=== PATIENT | male | born 1970 | race Caucasian/White ===

== ENCOUNTER 2017-10-04 08:48 | Emergency (ER) | payer BC, SELFPAY | END 2017-10-04 11:01 | disposition home or self-care (01) | PROVIDERS: Emergency Provider Emergency Medicine; Visit Provider Emergency Medicine | DX: R53.83 Other fatigue (principal) | CPT/HCPCS: 71020; 71046; 80053; 85025; 93005; 93010; 94640; 96360; 99058; 99284 ==